=== PATIENT | female | born 1980 | race Caucasian/White ===

== ENCOUNTER 2019-03-15 22:30 | Inpatient (IN) | payer OTHER ==
[2019-03-15] MEDS ORDERED: OXYTOCIN 20 UNIT/1000ML DRIP 20 UNITS/1,000 ML BAG IV SCH (23:45)
[2019-03-15] MEDS ORDERED: BICITRA ORAL LIQD 30ML PO ONE (23:51)
[2019-03-15] MEDS ORDERED: FAMOTIDINE 20 MG/2 ML INJ IV ONE (23:51)
[2019-03-15] MEDS ORDERED: METOCLOPRAMIDE 10 MG/2 ML INJ IV ONE (23:51)
[2019-03-15] MEDS ORDERED: TERBUTALINE 1 MG/1 ML INJ SUB-Q ONE (23:57)
--- NOTE | 2019-03-16 00:09 | Anesthesia Day of Surgery ---
Anesthesia Day of Surgery - Day of Surgery Patient Examined: Yes Patient H&P Reviewed: Yes Patient is NPO: No (Last food 1899)
--- NOTE | 2019-03-16 00:09 | Anesthesia Consultation ---
Anesthesia Consult and Med Hx Date of service: 03/16/19 - Airway Anesthetic Teeth Evaluation: Good ROM Head & Neck: Adequate Mental/Hyoid Distance: Adequate Mallampati Class: Class II Intubation Access Assessment: Probably Good - Pulmonary Exam CTA: Yes - Cardiac Exam Cardiac Exam: RRR - Pre-Operative Health Status ASA Pre-Surgery Classification: ASA3, Emergency Proposed Anesthetic Plan: Spinal - Pulmonary Hx Asthma: No COPD: No Hx Pneumonia: No - Cardiovascular System Hx Hypertension: No - Central Nervous System Hx Seizures: No Hx Psychiatric Problems: No - Endocrine Hx Renal Disease: No Hx End Stage Renal Disease: No Hx Hypothyroidism: No Hx Hyperthyroidism: No - Hematic Hx Anemia: No Hx Sickle Cell Disease: No - Other Systems Hx Alcohol Use: No Hx Obesity: Yes
[2019-03-16] MEDS: LACTATED RINGERS 1,000 ML IV SCH ×3 (00:10→04:34)
--- NOTE | 2019-03-16 00:14 | Ultrasound Report ---
ULTRASOUND OBSTETRIC, 03/15/2019 CLINICAL INFORMATION/INDICATION: Reported history of labor. Evaluate well-being. COMPARISON: No prior studies are available for comparison. FINDINGS: There is a single intrauterine . BPD = 9.3 cm = 37 weeks, 6 day(s). Head circumference = 33.8 cm = 38 weeks, 5 day(s). Abdominal circumference = 33.7 cm = 37 weeks, 4 day(s). Femur length = 7.3 cm = 37 weeks, 3 day(s). Overall estimated sonographic age = 37 weeks, 6 day(s). heart rate is 164 beats per minute. Estimated weight is 3280 grams. position is transverse with head to the maternal right. Placenta is fundal and grade 2 . Amniotic fluid volume measures 4.6 cm which appears subjectively decreased.. Impression: 1. Single living intrauterine with estimated sonographic age of 37 weeks, 6 day(s). Signer Name: Wendy Pickens MD Signed: 03/16/2019 12:10 AM Workstation Name: [id number]
[2019-03-16 00:27] LABS: Hematocrit 35.1 % (30.3-42.9); Hemoglobin 12.1 gm/dl (10.1-14.3); Mean Corpuscular HGB Conc 35 % (30-34); Mean Corpuscular Volume 94 fl (79-97); Platelet Count 250 K/mm3 (140-440); Red Blood Count 3.72 M/mm3 (3.65-5.03); Red Cell Distribution Width 14.2 % (13.2-15.2)
[2019-03-16 00:52] LABS: Hepatitis C Virus Antibody Non-Reactive (NonReactive)
[2019-03-16 01:57] LABS: Band Neutrophils # (Manual) 0.5 K/mm3; Basophils % (Manual) 0 % (0.0-1.8); Eosinophils % (Manual) 0 % (0.0-4.3); Total Cells Counted 100
[2019-03-16 02:00] LABS: Platelet Estimate Consistent w Auto
[2019-03-16] MEDS ORDERED: METOCLOPRAMIDE 10 MG/2 ML INJ ONE (04:15)
[2019-03-16] MEDS ORDERED: BICITRA ORAL LIQD 30ML ONE (04:15)
[2019-03-16] MEDS ORDERED: ceFAZolin/Water 2 GM/20 ML 0 GM/0 ML SYRINGE IV ONE (04:16)
[2019-03-16] MEDS ORDERED: FAMOTIDINE 20 MG/2 ML INJ IV ONE (04:16)
[2019-03-16] MEDS ORDERED: WATER FOR IRRIG STERILE 1,500 ML BOTTLE IR ONE (05:28)
[2019-03-16] MEDS ORDERED: SODIUM CHLORIDE 0.9% IRR 1,500 ML BOTTLE IR ONE (05:28)
[2019-03-16] MEDS ORDERED: KETOROLAC 30 MG/1 ML INJ ONE (05:34)
[2019-03-16] MEDS ORDERED: BUPIVACAINE/PF (0.5%) 5 MG/1 ML 30 ML VIAL INFILTRATI ONE (05:34)
[2019-03-16] MEDS ORDERED: DEXMEDETOMIDINE 200 MCG/2 ML VIAL IV ONE (05:34)
[2019-03-16] MEDS ORDERED: PHENYLEPHRINE/NS 1,000 MCG/10 ML SYRINGE (OR USE) IV ONE (05:34)
[2019-03-16] MEDS ORDERED: OXYTOCIN 10 UNIT/1 ML INJ ONE (05:34)
--- NOTE | 2019-03-16 06:15 | Post Anesthesia Evaluation ---
- Post Anesthesia Evaluation Patient Participated: Yes Airway Patent: Yes Stable Respiratory Function: Yes Nausea/Vomiting: No Temp > 96.8F: Yes Pain Manageable: Yes Adequeate Hydration: Yes Anesthesia Complications: No Block Receding Appropriately: Yes
--- NOTE | 2019-03-16 06:51 | History and Physical Report ---
History of Present Illness Date of examination: 03/16/19 Date of admission: 03/16/19 01:00 Chief complaint: My water broke History of present illness: Pt is a 38 year old 1t 38 weeks,who presents to L&D with complaint of leakage of fluid since 10 am. Patient has not had any care due to "financial reasons" but she had one visit with someone in [place]. Per patient she has had an uncomplicated . All labs are unknown, but are pending Past History Past Medical History: no pertinent history Past Surgical History: no surgical history Social history: - Obstetrical History Expected Date of Delivery: 03/30/19 Actual Gestation: 38 Week(s) 0 Day(s) : 4 Para: 3 Number of Living Children: 3 Medications and Allergies Allergies Allergy/AdvReac Type Severity Reaction Status Date / Time Penicillins Allergy Swelling Verified 10/10/15 07:27 Home Medications Medication Instructions Recorded Confirmed Last Taken Type Vit-Fe Fumar-FA [ 1 tab PO DAILY 03/16/19 03/16/19 2 Days Ago History Vitamin] ~03/14/19 Active Meds: Active Medications Oxytocin/Sodium Chloride (Pitocin/Ns 20 Unit/1000ml Drip) 20 units in 1,000 mls @ 0 mls/hr IV TITR ARMANDO Lactated Ringer's (Lactated Ringers) 1,000 mls @ 2,250 mls/hr IV PREOP ARMANDO Stop: 03/17/19 00:12 Last Admin: 03/16/19 04:34 Dose: 125 mls/hr Documented by: Clindamycin HCl (Cleocin 900 Mg/50 Ml) 900 mg in 50 mls @ 100 mls/hr IV PREOP NR; Protocol Stop: 03/16/19 23:44 Review of Systems All systems: negative Genitourinary: leakage of fluid, contractions - Vital Signs Vital signs: Vital Signs Pulse BP 89 112/55 03/15/19 22:49 03/15/19 22:49 Temp Pulse Resp BP Pulse Ox 98.0 F 105 H 16 101/58 98 03/16/19 03:23 03/16/19 04:48 03/16/19 01:05 03/16/19 04:07 03/16/19 04:48 - Physical Exam Breasts: Positive: deferred Cardiovascular: Regular rate, Normal S1, Normal S2 Lungs: Positive: Clear to auscultation, Normal air movement Abdomen: Positive: normal appearance, soft, normal bowel sounds. Negative: distention, tenderness Vulva: both: normal Vagina: Positive: normal moisture. Negative: discharge Cervix: Negative: lesion, discharge Uterus: Positive: normal size, normal contour Adnexa: both: normal Anus/Rectum: Positive: normal perianal skin, heme negative. Negative: rectal mass, hemorrhoids Extremities: Deep Tendon Reflex Grade: Normal +2 - Obstetrical FHR: auscultation normal Cervical Dilatation: 1 Cervical Effacement Percentage: 60 Uterine Contraction Pattern: Regular Uterine Tone Measurement Phase: Contraction Uterine Contraction Intensity: Moderate Results Result Diagrams: 03/15/19 23:28 Abnormal lab results 03/15/19 Range/Units 23:28 MCH 33 H (28-32) pg MCHC 35 H (30-34) % Seg Neuts % (Manual) 72.0 H (40.0-70.0) % Lymphocytes % (Manual) 10.0 L (13.4-35.0) % Monocytes % (Manual) 10.0 H (0.0-7.3) % Lymphocytes # (Manual) 0.9 L (1.2-5.4) K/mm3 Monocytes # (Manual) 0.9 H (0.0-0.8) K/mm3 All other labs normal. Assessment and Plan IUP at 38 weeks with prom and no care. Ultrasound on admission revealed transverse lie of fetus. WIll prepare for urgent . Per anesthesia, patient ate a meal at 7pm and surgery would need to be delayed. As patient nor is in no imminent danger, will postpone until 5am.
--- NOTE | 2019-03-16 06:57 | Procedure Note ---
OB Delivery Note - Delivery Date of Delivery: 03/16/19 Surgeon: SANYA DIANA Estimated blood loss: 500cc - Section Preop diagnosis: breech Postop diagnosis: same section procedure: primary low transverse Disposition: PACU Complications: none Narrative: see op report - Infant A at 1 minute: 8 at 5 minutes: 9 Gender: Female (7 pounds 11 ounces)
[2019-03-16] MEDS ORDERED: WITCH HAZEL/ GLYCERIN PAD TP PRN (07:01)
[2019-03-16] MEDS ORDERED: LANOLIN/ZINC/DIMETHICONE (LANSINOH) 7 GM TP PRN (07:01)
[2019-03-16] MEDS ORDERED: NALOXONE 0.4 MG/1 ML INJ IV PRN (07:01)
--- NOTE | 2019-03-16 07:01 | Operative Report ---
Operative Report Operative Report: The operative report for patient Fay Tillman Date of service: 03/16/19 Preoperative diagnosis: Intrauterine at 38 weeks 2. Breech presentation 3. SROM 4. No care Postoperative diagnosis: Same Procedure: Primary low transverse section Surgeon: Dr. Jessica Carlson EBL: 500 Urine output: 500 mL IV fluids: 1000 mL Findings: Viable female in the estela breech presentation. Weight 7 lbs. 11 oz. 3682 g Apgars 8 and 9]. Otherwise normal pelvic anatomy Specimens: None Complications: None Procedure: The patient was admitted to the OR with IV running and in place. She was properly identified as herself. She was given spinal anesthesia in the OR without difficulty. She was placed in the dorsal supine position with a leftward tilt. A Reyna catheter was inserted. She was then prepped and draped in the normal sterile fashion. An Allis test was used to confirm adequate anesthesia. Once confirmed, the incision was made with the scalpel and carried to the underlying fascia using the scalpel and the Bovie. The fascia was incised in the midline and incision was extended bilaterally using the curved Solomon scissors. The fascia was then dissected from the underlying rectus muscles in a series of sharp and blunt dissection using the Solomon scissors. Muscles were in the in the midline sharply using Metzenbaum scissors and the peritoneum was entered into bluntly using the surgeon's fingers. A bladder blade was then placed into the incision to protect the bladder. Following this the bladder flap was created. Hysterotomy incision was then made in the scalpel. Upon uterine entry, the amniotic sac was ruptured for clear fluid. The was then delivered in the estela breech presentation. Her buttocks was delivered first followed by her legs that were then wrapped with a moist blue towel. This was followed by her torso, shoulders then finally her head was delivered. Her mouth and nose were suctioned on the field. The cord was clamped and cut and he was handed to the waiting NICU personnel. The uterus was then exteriorized and cleared of all clots and debris. The hysterotomy incision was then closed in a running locked fashion using 0 Vicryl. The abdomen was then copiously irrigated with warm normal saline. Following this the uterus was replaced into the abdominal cavity. At this point the muscles were reapproximated in the midline using individual sutures of 0 Vicryl. Following this the fascia was closed in a running fashion using 0 Vicryl. Tissue was then copiously irrigated. Skin was closed in a running fashion using 3-0 Monocryl. The sponge lap needle and instrument counts were correct 2. The patient tolerated the procedure well. She was taken to recovery in stable condition.
[2019-03-16] MEDS ORDERED: ONDANSETRON 4 MG/2 ML INJ IV PRN (07:11)
[2019-03-16] MEDS ORDERED: SIMETHICONE 80 MG CHEW TAB PO PRN (07:11)
[2019-03-16] MEDS ORDERED: OXYTOCIN 20 UNIT/1000ML DRIP 20 UNITS/1,000 ML BAG IV SCH (08:00)
[2019-03-16] MEDS: D5W/LACTATED RINGERS 1,000 ML IV SCH (13:06)
[2019-03-16] MEDS: KETOROLAC 30 MG/1 ML INJ IV PRN ×2 (13:06→19:15)
[2019-03-16] MEDS ORDERED: AMMONIA INHALANT IH ONE (17:34)
[2019-03-16] MEDS: oxyCODONE /ACETAMINOPHEN 5-325MG TAB PO PRN (17:48)
[2019-03-16 20:59] LABS: Hematocrit 30.3 % (30.3-42.9); Hemoglobin 10.2 gm/dl (10.1-14.3)
[2019-03-17] MEDS: KETOROLAC 30 MG/1 ML INJ IV PRN (01:04)
[2019-03-17] MEDS: oxyCODONE /ACETAMINOPHEN 5-325MG TAB PO PRN ×2 (04:54→17:37)
[2019-03-17] MEDS: IBUPROFEN 800 MG TAB PO PRN ×2 (08:37→15:29)
[2019-03-17] MEDS: FERROUS SULFATE 325 MG TAB PO SCH (10:30)
[2019-03-17] MEDS: PRENATAL VIT27-FE FUMARATE-FOLIC ACID VIT TAB PO SCH (10:30)
--- NOTE | 2019-03-17 12:06 | Progress Note ---
Assessment and Plan POD 1 s/p ltcs for breech. doing well. continue to encourage ambulation. Subjective - Subjective Date of service: 03/17/19 Interval history: Pt is a 38 year old 1t 38 weeks,who presents to L&D with complaint of leakage of fluid since 10 am. Patient has not had any care due to "financial reasons" but she had one visit with someone in [place]. Per patient she has had an uncomplicated . All labs are unknown, but are p ending Patient reports: appetite normal, voiding normally, pain well controlled, ambulating normally [place]: doing well Objective - Vital Signs Latest vital signs: Vital Signs Temp Pulse Resp BP BP Pulse Ox 03/17/19 07:32 98.1 F 78 18 101/60 03/17/19 00:32 97.7 F 77 20 97/54 98 03/16/19 12:50 98.5 F 80 16 105/54 97 Intake and Output 03/16/19 03/17/19 03/17/19 22:59 06:59 14:59 Intake Total 240 1240 480 Output Total 400 1400 Balance -160 -160 480 Intake: IV 1000 D5lr 1,000 ml @ 125 mls/ 1000 hr IV DIRECT ARMANDO Rx#: [id number] Oral 240 240 480 Output: Urine 400 1400 Indwelling Catheter 400 Void 1400 Other: Total, Intake Amount 240 240 480 Total, Output Amount 400 800 # Voids Void 0 2 1 - Exam Breasts: Present: deferred Cardiovascular: Present: Regular rate, Normal S1, Normal S2 Lungs: Present: Clear to auscultation, Normal air movement Abdomen: Present: normal appearance, soft, normal bowel sounds Vulva: both: normal Uterus: Present: normal, firm Extremities: Present: normal Deep Tendon Reflex Grade: Normal +2 Incision: Present: normal, dry, intact
[2019-03-18] MEDS: D5W/LACTATED RINGERS 1,000 ML IV SCH (02:02)
[2019-03-18] MEDS: IBUPROFEN 800 MG TAB PO PRN ×3 (05:46→21:55)
[2019-03-18] MEDS: oxyCODONE /ACETAMINOPHEN 5-325MG TAB PO PRN (06:47)
[2019-03-18] MEDS: PRENATAL VIT27-FE FUMARATE-FOLIC ACID VIT TAB PO SCH (11:00)
[2019-03-18] MEDS: FERROUS SULFATE 325 MG TAB PO SCH (11:00)
--- NOTE | 2019-03-18 16:09 | Progress Note ---
Assessment and Plan POD 2 s/p ltcs for breech. Doing well. Patient is planning for discharge on tomorrow. Subjective - Subjective Date of service: 03/18/19 Interval history: Pt is a 38 year old 1t 38 weeks,who presents to L&D with complaint of leakage of fluid since 10 am. Patient has not had any care due to "financial reasons" but she had one visit with someone in [place]. Per patient she has had an uncomplicated . All labs are unknown, but are pending Patient reports: appetite normal, voiding normally, pain well controlled, ambulating normally : doing well Objective - Vital Signs Latest vital signs: Vital Signs Temp Pulse Resp BP BP Pulse Ox 03/18/19 08:12 97.6 F 78 18 110/56 03/18/19 00:06 98.4 F 83 20 110/52 98 03/17/19 16:10 98.3 F 86 18 94/45 Intake and Output 03/18/19 03/18/19 03/18/19 06:59 14:59 22:59 Intake Total 240 480 Output Total 600 Balance -360 480 Intake: Oral 240 480 Output: Urine 600 Void 600 Other: Total, Intake Amount 240 480 Total, Output Amount 600 # Voids Void 1 - Exam Breasts: Present: deferred Cardiovascular: Present: Regular rate, Normal S1, Normal S2 Lungs: Present: Clear to auscultation, Normal air movement Abdomen: Present: normal appearance, soft, normal bowel sounds Vulva: both: normal Uterus: Present: normal, firm Extremities: Present: normal Deep Tendon Reflex Grade: Normal +2 Incision: Present: normal, dry, intact
--- NOTE | 2019-03-18 16:11 | Discharge Summary ---
Providers - Providers Date of Admission: 03/16/19 01:00 Date of discharge: 03/19/19 Attending physician: SANYA DIANA 03/17/19 19:56 Consult to Case Management [CONS] Routine Services Needed at Discharge: Service Delivery Consultant Notified:: n/a Additional Physician Instructions: no care. Primary care physician: SANYA DIANA Hospitalization Reason for admission: rupture of membranes Delivery: Procedure: primary low transverse (for breech) Laceration: none Incision: normal, dry, intact complications: none Discharge diagnosis: IUP at term delivered [place] baby: female Hospital course: unremarkable Condition at discharge: Good Disposition: DC-01 TO HOME OR SELFCARE Plan - Discharge Medications Prescriptions: Docusate Sodium [Colace] 100 mg PO BID PRN #60 capsule PRN Reason: Constipation Ibuprofen [Motrin] 800 mg PO Q8HR PRN #40 tablet PRN Reason: Pain, Moderate (4-6) oxyCODONE /ACETAMINOPHEN [Percocet 5/325] 2 tab PO Q6HR PRN #40 tablet PRN Reason: Pain - Provider Discharge Summary Activity: routine, no sex for 6 weeks, no heavy lifting 4 weeks, no strenuous exercise Diet: routine Instructions: routine Additional instructions: [] Smoking cessation referral if applicable(refer to patient education folder for contact #) [] Refer to [facility] Booklet Call your doctor immediately for: * Fever > 100.5 * Heavy vaginal bleeding ( >1 pad per hour) * Severe persistent headache * Shortness of breath * Reddened, hot, painful area to leg or breast * Drainage or odor from incision. * Keep incision clean and dry at all times and follow doctor's instructions regarding bathing/showering - Follow up plan Follow up: SANYA DIANA MD [Primary Care Provider] - 14 Days
[2019-03-19] MEDS: IBUPROFEN 800 MG TAB PO PRN ×2 (06:09→11:39)
[2019-03-19] MEDS: PRENATAL VIT27-FE FUMARATE-FOLIC ACID VIT TAB PO SCH (09:22)
[2019-03-19] MEDS: FERROUS SULFATE 325 MG TAB PO SCH (09:22)
[2019-03-19 15:03] VITALS: BP 107/50
[2019-03-24 11:11] LABS: HIV-1 Antibody Differentiation SEE SCANNED RESULT; HIV-2 Antibody Differentiation SEE SCANNED RESULT
== END 2019-03-19 16:05 | disposition home or self-care (01) | DRG 788 ==
LOC: TRG 22:30 → LD 03-16 01:00 → OB 03-16 09:26
PROVIDERS: ADMIT Obstetrics & Gynecology; ATTEND Obstetrics & Gynecology
PROC: 10D00Z1 Extraction of Products of Conception, Low, Open Approach (ICD-10-PCS; principal; 2019-03-16)
DX: O32.1XX0 Maternal care for breech presentation, not applicable or unspecified (principal); Z3A.38 38 weeks gestation of pregnancy; Z37.0 Single live birth; Z88.0 Allergy status to penicillin
CPT/HCPCS: 36415; 59025; 76816; 85007; 85014; 85018; 85025; 86592; 86689; 86706; 86762; 86803; 86850; 86900; 86901; 88307; G0378; A6250; J0690; J1885; J2370; J2590; J2765; J3105; J3490; J7120; J7121